=== PATIENT | male | born 1970 | race Caucasian/White ===

== ENCOUNTER 2020-06-25 07:43 | Emergency (ER) | payer BC, SELFPAY ==
--- NOTE | ~2020-06-25 | XR_ITS ---
EXAMINATION: XR ribs RT 2V w CXR 2V INDICATION: Right lower rib pain TECHNIQUE: Frontal and lateral views of the chest and 3 views of the right ribs were obtained. COMPARISON: 10/13/2011 FINDINGS: The lungs are free of acute opacities. There is no pleural effusion or pneumothorax. The he art size is normal. Calcified pulmonary nodules and calcified bilateral hilar lymph nodes are consist ent with old granulomatous disease. No displaced rib fracture is identified. No productive changes of bony healing are seen. IMPRESSION: 1. No acute cardiopulmonary abnormality or evidence of displaced rib fracture. Reviewed, dictated and finalized at location B.
[2020-06-25 07:48] VITALS: BP 134/93; PULSE 91; RESP 18; TEMP 36.6; O2SAT 100
--- NOTE | 2020-06-25 08:10 | ED.GENADULT ---
HPI - General Adult General Chief complaint: Unspecified Stated complaint: BRUISED CRACKED OR BROKE A RIB Time Seen by Provider: 06/25/20 07:57 Source: patient Mode of arrival: ambulatory Limitations: no limitations History of Present Illness HPI narrative: Patient is a 49-year-old male that presents for right-sided chest wall pain. He states he was trying to jump to get something from a pool with an outstretched arm when he banged into the side of the pool with his right side. Patient reports sharp pain with inspiration since that time. No head trauma. No shortness of breath. No fever or cough. Patient denies any bruising or laceration at the site. Related Data Allergies Allergy/AdvReac Type Severity Reaction Status Date / Time No Known Allergies Allergy Unknown Unverified 06/25/20 07:52 Review of Systems Review of Systems: Narrative: CONSTITUTIONAL: Denies fever CARDIOVASCULAR: Denies chest pain RESPIRATORY: Denies cough or dyspnea. GASTROINTESTINAL: Denies abdominal pain SKIN: Denies rash MUSCULOSKELETAL: Denies back pain NEUROLOGIC: Denies headache [facility] Past Medical History Medical History (Updated 06/25/20 @ 09:33 by Amy Riggs MD) Chronic back pain Nephrolithiasis Throat cancer Social History Social History (Updated 06/25/20 @ 09:31 by Amy Riggs MD) Smoking status: Current every day smoker Tobacco type: cigarettes Alcohol intake: current Substance use: current Substance use type: marijuana Living arrangements: with family Gender identity (if verbalized by the patient): Male Exam Narrative: Exam Narrative: GENERAL: Awake, alert, conversant HEAD: Normocephalic, atraumatic. EYES: PERRLA and EOMI. ENT: Nares clear, no rhinorrhea or epistaxis. Mucous membranes moist. NECK: Supple. CHEST: No respiratory distress, breathing even and non labored, return producible right-sided chest wall tenderness, no ecchymoses, no crepitus HEART: Regular rate, sinus rhythm ABDOMEN:Non distended, non tender in all 4 quadrants, no rebound, non rigid, no guarding EXTREMITIES: Normal range of motion. No edema. SKIN: Warm, dry, no rash. NEURO:No focal deficits. Alert and oriented x3 Course Vital Signs Vital signs: Vital Signs Temperature 36.6 C 06/25/20 07:48 Pulse Rate 91 06/25/20 07:48 Respiratory Rate 18 06/25/20 07:48 Blood Pressure 134/93 H 06/25/20 07:48 Pulse Oximetry 100 06/25/20 07:48 Temperature 36.6 C 06/25/20 07:48 Pulse Rate 91 06/25/20 07:48 Respiratory Rate 18 06/25/20 07:48 Blood Pressure 134/93 H 06/25/20 07:48 Pulse Oximetry 100 06/25/20 07:48 Medical Decision Making MDM Narrative Medical decision making narrative: Patient with reproducible chest wall tenderness after trauma to the chest wall. Vital signs are stable. No severe ecchymoses. No right upper quadrant pain, left upper quadrant pain or epigastric. No anginal type symptoms. I have a very low suspicion for intra-abdominal injury or injury to intra-abdominal organs given mechanism and presenting symptoms. Chest x-ray shows no obvious sign of rib fracture, no sign of pneumothorax. I feel like patient most likely has a rib contusion. We will prescribe symptomatic treatment for pain and he was discharged home, given close return precautions. Differential Diagnosis Differential Diagnosis: Rib fracture, contusion, pneumothorax Medical Records Medical records reviewed: Yes I reviewed the patient's medical records. Vital Signs Vital Signs: Vital Signs Temperature 36.6 C 06/25/20 07:48 Pulse Rate 91 06/25/20 07:48 Respiratory Rate 18 06/25/20 07:48 Blood Pressure 134/93 H 06/25/20 07:48 Pulse Oximetry 100 06/25/20 07:48 Temperature 36.6 C 06/25/20 07:48 Pulse Rate 91 06/25/20 07:48 Respiratory Rate 18 06/25/20 07:48 Blood Pressure 134/93 H 06/25/20 07:48 Pulse Oximetry 100 06/25/20 07:48 Imaging Data Radiologist's impression: ITS Im
[2020-06-25] MEDS: oxyCODONE/ACETAMINOPHEN 5-325 MG TABLET 1 TABLET PO (09:05)
[2020-06-25 10:07] VITALS: BP 157/82; PULSE 77; RESP 17; O2SAT 98
== END 2020-06-25 10:08 | disposition home or self-care (01) ==
PROVIDERS: Emergency Provider Emergency Medicine; PCP Internal Medicine
DX: S20.211A Contusion of right front wall of thorax, initial encounter (principal); W22.8XXA Striking against or struck by other objects, initial encounter; F17.210 Nicotine dependence, cigarettes, uncomplicated; Z85.818 Personal history of malignant neoplasm of other sites of lip, oral cavity, and pharynx
CPT/HCPCS: 71046; 71100; 99283; A9270

== ENCOUNTER 2021-06-11 23:27 | Emergency (ER) | payer BC, SELFPAY ==
--- NOTE | ~2021-06-11 | CT_ITS ---
EXAMINATION: CT abdomen pelvis wo con DATE: 06/12/2021 00:25 INDICATION: Several days of back pain and lower abdominal pain. TECHNIQUE: Computed tomography (CT) of the abdomen and pelvis was performed without intravenous contr ast. Automated exposure control and iterative reconstruction technique were employed. The dose-length product was 785.80 mGy-cm. COMPARISON: 05/10/2019 FINDINGS: Lung bases are clear. Heart size is normal. No pericardial or pleural effusion. Liver, gallbladder, s pleen, pancreas and bilateral adrenal glands are normal. 4.2 cm left parapelvic cyst. Bilateral nonob structing nephrolithiasis with 8 stones in the right kidney measuring up to 4 mm and 5 stones in the left kidney the largest measuring up to 2 mm. Bladder is normal. Asymmetric enlargement of the prosta te most prominent at the left posterior aspect of the prostate which has significantly progressed sin ce the prior study and with effacement of the fat plane between the prostate and the rectum which sweet ses concern for malignancy. There is moderate colonic diverticulosis with a sigmoid predominance. Th ere is no adjacent inflammatory change to suggest diverticulitis. Small bowel and appendix are normal . Small fat-containing umbilical hernia. No free intraperitoneal gas or fluid. No pathologically enla rged abdominal or pelvic lymphadenopathy. Severe left and moderate right hip osteoarthritis. IMPRESSION: 1. Bilateral nonobstructing nephrolithiasis. 2. Marked interval asymmetric left posterior predominant enlargement of the prostate with effacement of the fat plane between the prostate and the rectum which raises concern for malignancy or prostatit is in the appropriate clinical setting 3. Moderate diverticulosis. Reviewed, dictated and finalized at location A. IMPRESSION: 1. Bilateral nonobstructing nephrolithiasis. 2. Marked interval asymmetric left posterior predominant enlargement of the pro state with effacement of the fat plane between the prostate and the rectum whic h raises concern for malignancy or prostatitis in the appropriate clinical sett ing 3. Moderate diverticulosis.
[2021-06-11 23:36] VITALS: BP 160/100; PULSE 103; RESP 20; TEMP 36.7; O2SAT 97
[2021-06-11 23:46] VITALS: BP 140/96; PULSE 102; RESP 16; O2SAT 98
--- NOTE | 2021-06-11 23:57 | ED.ABDPAIN ---
HPI - Abdominal Pain General Chief Complaint: Urogenital-Male Stated Complaint: kidney stone, cant urinate Time Seen by Provider: 06/11/21 23:42 Source: RN notes reviewed History of Present Illness HPI narrative: Patient presents to emergency department from home for abdominal pain. Patient states that for the past 2 days has been having pain in his lower back that moved into his lower abdomen today. He states that with that he has been unable to urinate for the past 2 hours he states he does have a history of kidney stones and pain and felt similar to his previous kidney stones he denies any fevers or chills chest pain shortness of breath or any other symptoms states he took Tylenol at home with no relief Related Data Allergies Allergy/AdvReac Type Severity Reaction Status Date / Time No Known Allergies Allergy Unknown Unverified 06/11/21 23:45 Review of Systems Review of Systems: Gen.: Denies fevers or chills ENT: Denies congestion Respiratory: Denies shortness of breath or cough CV: Denies chest pain or palpitations GI: Reports lower abdominal pain denies nausea vomiting or diarrhea denies inability urinate Musculoskeletal: Denies back pain or muscle pain Neuro: Denies numbness, tingling, weakness or focal weakness Skin: Denies rash Except as documented, all other systems reviewed and negative [facility] Past Medical History Medical History Chronic back pain Nephrolithiasis Throat cancer Social History Social History Smoking status: Current every day smoker Tobacco type: cigarettes Alcohol intake: current Substance use: current Substance use type: marijuana Gender identity (if verbalized by the patient): Male Exam Narrative: APPEARANCE: No acute distress, nontoxic, resting in bed EYES: EOMI HEENT: Normocephalic, atraumatic, OMM RESPIRATORY: No respiratory distress Clear to auscultation bilaterally with no rhonchi wheezing or rales. CARDIOVASCULAR: Regular rate and rhythm without murmurs rubs or gallops. ABDOMINAL: Soft, mild fullness in suprapubic region no tenderness right upper quadrant left lower quadrant bilateral flank tenderness MUSCULOSKELETAl: Moves all extremities. No clubbing, cyanosis or edema. NEURO: Awake and alert. Following commands, speech normal, no focal deficits SKIN:: Warm, dry. No rashes lesions or abrasions PSYCHIATRIC: Normal affect/mood, Course Course Emergency Course: Patient with Haley placed in ED patient with a total of 2800 of urine out the Haley was clamped after each 1000 mL out Called discussed with Dr. Schilling presentation work-up agrees with plan for discharge with Haley in place was patient on Flomax Discussed with patient results of workup and diagnosis. Discussed need for follow-up with primary care, proper use of medication, and reasons to return to the emergency department. Patient understands and agrees to current treatment plan Vital Signs Vital signs: Vital Signs Temperature 98.1 F 06/11/21 23:36 Pulse Rate 103 H 06/11/21 23:36 Respiratory Rate 20 06/11/21 23:36 Blood Pressure 160/100 H 06/11/21 23:36 Pulse Oximetry 97 06/11/21 23:36 Temperature 98.1 F 06/11/21 23:36 Pulse Rate 83 06/12/21 02:30 Respiratory Rate 18 06/12/21 02:30 Blood Pressure 133/81 06/12/21 02:30 Pulse Oximetry 99 06/12/21 02:30 MDM - Abdominal Pain Lab Data Result diagrams: 06/12/21 00:11 06/12/21 00:11 Labs: Lab Results 06/12/21 06/12/21 06/12/21 Range/Units 00:11 00:11 01:10 WBC 10.2 H (4.5-10.0) K/mm3 RBC 5.01 (4.6-6.20) M/mm3 Hgb 15.8 (14.0-18.0) g/dL Hct 47.1 (42.0-52.0) % MCV 94.0 (80-100) fl MCH 31.5 (26-34) pg MCHC 33.5 (32-36) g/dl RDW 13.2 (11.5-14.5) % Plt Count 247 (150-375) k/mm3 MPV 9.4 (7.4-10.4) fl Immature Gran % (Auto) 0.4 (
[2021-06-12 00:17] LABS: Basophils Absolute Auto 0.1 K/mm3 (0.0-0.1); Basophils Percent Auto 0.8 % (0.2-1.2); Eosinophils Absolute Auto 0.4 K/mm3 (0-0.3); Hematocrit 47.1 % (42.0-52.0); Hemoglobin 15.8 g/dL (14.0-18.0); Immature Granulocyte Absolute 0.04 K/mm3 (0.00-0.031); Immature Granulocyte Percent A 0.4 % (0-0.5); Lymphocytes Absolute Auto 1.83 K/mm3 (0.9-3.2); Lymphocytes Percent Auto 17.9 % (18.3-44.2); Mean Corpuscular HGB Conc 33.5 g/dl (32-36); Mean Corpuscular Hemoglobin 31.5 pg (26-34); Mean Platelet Volume 9.4 fl (7.4-10.4); Monocytes Absolute Auto 0.7 K/mm3 (0.1-0.6); Monocytes Percent Auto 6.5 % (2.6-8.5); Neutrophils Absolute Auto 7.2 K/mm3 (1.3-6.7); Neutrophils Percent Auto 70.4 % (45.5-73.1); Platelet Count Result 247 k/mm3 (150-375); Red Blood Count 5.01 M/mm3 (4.6-6.20); Red Cell Distribution Width 13.2 % (11.5-14.5); White Blood Count 10.2 K/mm3 (4.5-10.0)
[2021-06-12 00:28] LABS: Alanine Aminotransferase 21 U/L (4-50); Albumin Level 4.4 g/dL (3.5-5.1); Alkaline Phosphatase 74 U/L (38-126); Anion Gap 11 mmol/L (8-16); Aspartate Amino Transferase 28 U/L (17-59); Bilirubin,Total 0.3 mg/dL (0.2-1.3); Blood Urea Nitrogen 16 mg/dL (9-20); Calcium 8.6 mg/dL (8.4-10.2); Carbon Dioxide 18 mmol/L (22-30); Chloride 110 mmol/L (98-107); Estimated CRCL calculation 13 ml/min; Estimated Glomerular Filt Rate > 60; Glucose 107 mg/dL (65-110); Potassium 4.1 mmol/L (3.4-5.0); Sodium 139 mmol/L (137-145)
[2021-06-12 01:11] VITALS: BP 129/79; PULSE 82; RESP 15; O2SAT 99
[2021-06-12 01:16] VITALS: BP 135/87; PULSE 82; RESP 15; O2SAT 99
[2021-06-12 01:18] LABS: Add Urine Microscopic? YES; Appearance Urine Clear (Clear); Bilirubin Urine Negative (Negative); Blood Urine 1+ (Negative); Color Urine Straw (Yellow); Glucose Urine UA Negative (Negative); Ketones Urine Negative (Negative); Leukocyte Esterase Ur Negative LEU/UL (Negative); Nitrate Urine Negative (Negative); Protein Urine Negative (Negative); RBC Urine 0-2 /hpf (0-2); Specific Grav Ur 1.005 (1.001-1.035); Urobilinogen Urine Negative mg/dL (<2.0); WBC Urine 0-3 /hpf
--- NOTE | 2021-06-12 01:30 | PC.NURSE ---
1000 ml emptied from Haley.. Unclamped at this time.
[2021-06-12] MEDS: TAMSULOSIN HCL 0.4 MG CAPSULE PO (01:41)
[2021-06-12 02:30] VITALS: BP 133/81; PULSE 83; RESP 18; O2SAT 99
--- NOTE | 2021-06-12 03:17 | PC.NURSE ---
1000 ml emptied from Haley catheter at this time.
[2021-06-12 03:25] VITALS: BP 131/85; PULSE 88; RESP 18; O2SAT 100
== END 2021-06-12 03:28 | disposition home or self-care (01) ==
PROVIDERS: Emergency Provider Emergency Medicine; PCP Internal Medicine
DX: R33.9 Retention of urine, unspecified (principal); N20.0 Calculus of kidney; Z87.442 Personal history of urinary calculi; F17.210 Nicotine dependence, cigarettes, uncomplicated; K57.90 Diverticulosis of intestine, part unspecified, without perforation or abscess without bleeding; N40.0 Benign prostatic hyperplasia without lower urinary tract symptoms; Z85.819 Personal history of malignant neoplasm of unspecified site of lip, oral cavity, and pharynx
CPT/HCPCS: 36415; 51701; 74176; 80053; 81001; 85025; 99284; A9270